=== PATIENT | female | born 1935 | race Caucasian/White ===

== ENCOUNTER 2019-12-01 12:56 | Outpatient (CLI) | payer OTHER, SELFPAY ==
[2019-12-01 14:01] LABS: Hematocrit 41.4 % (37.0-47.0); Hemoglobin 13.1 g/dL (12.0-15.0); Mean Corpuscular HGB Conc 31.6 g/dl (32-36); Mean Corpuscular Hemoglobin 29.5 pg (26-34); Mean Corpuscular Volume 93.2 fl (80-100); Mean Platelet Volume 10.2 fl (7.4-10.4); Platelet Count Result 196 k/mm3 (150-375); Red Blood Count 4.44 M/mm3 (4.2-5.4); Red Cell Distribution Width 12.6 % (11.5-14.5); White Blood Count 5.1 K/mm3 (4.5-10.0)
[2019-12-01 14:16] LABS: Alanine Aminotransferase 13 U/L (4-35); Alkaline Phosphatase 64 U/L (38-126); Anion Gap 7 mmol/L (8-16); Aspartate Amino Transferase 25 U/L (14-36); Bilirubin,Total 0.5 mg/dL (0.2-1.3); Blood Urea Nitrogen 28 mg/dL (7-17); Calcium 9.3 mg/dL (8.4-10.2); Carbon Dioxide 26 mmol/L (22-30); Chloride 104 mmol/L (98-107); Cholesterol 155 mg/dL (0-200); Estimated Glomerular Filt Rate > 60; Glucose 98 mg/dL (65-105); HDL Direct 66 mg/dL; Potassium 3.9 mmol/L (3.4-5.0); Sodium 137 mmol/L (137-145); Triglycerides 105 mg/dL (<150); Uric Acid 5.7 mg/dL (2.5-7.5)
[2019-12-01 14:27] LABS: LDL Cholesterol Direct 59 mg/dL
== END 2019-12-01 12:57 | disposition home or self-care (01) ==
LOC: ANHLAB 12:58
PROVIDERS: PCP Family Medicine; Visit Provider Family Medicine
DX: E78.2 Mixed hyperlipidemia (principal); I10 Essential (primary) hypertension; M12.9 Arthropathy, unspecified
CPT/HCPCS: 36415; 80053; 80061; 84550; 85027

== ENCOUNTER 2019-12-11 14:00 | Outpatient (CLI) | payer OTHER, SELFPAY ==
--- NOTE | ~2019-12-11 | US_ITS ---
EXAMINATION: US venous doppler [facility] DATE: 12/11/2019 14:29 INDICATION: Left lower limb edema. TECHNIQUE: Grayscale ultrasound images without and with compression and Doppler ultrasound images of the left lower extremity veins were obtained. COMPARISON: None. FINDINGS: The visualized portions of left common femoral vein, profunda (deep) femoral vein, femoral vein, popl iteal vein, peroneal veins, posterior tibial veins, and greater saphenous vein outflow are patent. IMPRESSION: 1. No deep venous thrombosis. Reviewed, dictated and finalized at location B.
== END 2019-12-11 14:01 | disposition home or self-care (01) ==
LOC: ANHIMG 14:06
PROVIDERS: PCP Family Medicine; Visit Provider Family Medicine
DX: R60.9 Edema, unspecified (principal)
CPT/HCPCS: 93971

== ENCOUNTER 2019-12-18 09:43 | Outpatient (CLI) | payer OTHER, SELFPAY ==
--- NOTE | ~2019-12-18 | DEXA_ITS ---
Bone Density Report Name: Hilda Tinoco Age: 84 Sex: Female Ethnicity: White Date of : 1935 Indication: osteopenia; height loss; prior fracture; hysterectomy; Referring Provider: CORINNA YUNG Study: Bone densitometry was performed. Exam Date: December 18, 2019 Accession number: [id number] Bone Density: Region BMD T-score Z-score Classification AP Spine (L1, L2, L3) 0.863 -1.4 1.3 Osteopenia Femoral Neck (Left) 0.510 -3.0 -0.6 Osteoporosis Total Hip (Left) 0.685 -2.1 0.1 Osteopenia Total Hip Bilateral Avg 0.702 -1.9 0.3 Osteopenia Femoral Neck (Right) 0.540 -2.8 -0.3 Osteoporosis Total Hip (Right) 0.717 -1.8 0.4 Osteopenia World Health Organization criteria for BMD impression classify patients as: Normal (T-score at or above -1.0), Osteopenia (T-score between -1.0 and -2.5), or Osteoporosis (T-score at or below -2.5). 10-year Fracture Risk: FRAX not reported because: Some T-score for Spine Total or Hip Total or Femoral Neck at or below -2.5 Previous Exams: Region Exam Age BMD T-score BMD Change BMD Change Date g/cm2 vs Baseline vs Previous AP Spine(L1, L2, L3) 12/18/2019 84 0.863 -1.4 0.110(14.6%)# 0.058(7.2%)* 05/25/2016 80 0.805 -1.9 0.052(6.9%)# 0.021(2.7%)# 01/31/2013 77 0.784 -2.1 0.031(4.2%)# 0.018(2.3%)# 04/26/2003 67 0.766 -2.3 0.013(1.8%) 0.013(1.8%) 07/18/2001 65 0.753 -2.4 Total Hip(Left) 12/18/2019 84 0.685 -2.1 -0.066(-8.7%)# -0.064(-8.5%)* 05/25/2016 80 0.749 -1.6 -0.002(-0.2%)# 0.041(5.8%)# 01/31/2013 77 0.708 -1.9 -0.043(-5.7%)# -0.043(-5.7%)# 04/26/2003 67 0.751 -1.6 Total Hip(Right) 12/18/2019 84 0.717 -1.8 -0.072(-9.2%)# 0.006(0.8%) 05/25/2016 80 0.711 -1.9 -0.078(-9.9%)# -0.065(-8.4%)# 01/31/2013 77 0.777 -1.4 -0.013(-1.6%)# -0.013(-1.6%)# 04/26/2003 67 0.789 -1.3 *Denotes significance at 95% confidence level, LSC for AP Spine = 0.022 g/cm2, LSC for Total Hip = 0.027 g/cm2 Clinical Information Provided by Patient: Has had a low trauma fracture Has the following medical conditions: Hysterectomy Patient maximum height was 65 Menopause Age: 51 No regular weight bearing exercise Onset of menses at age 14 Number of children 5 Impression: The patient has established osteoporosis, based on the Left Femoral Neck T-score and the existence of a prior fracture. The patient has risk factors, including: previous fracture. T
--- NOTE | ~2019-12-18 | MM_ITS ---
EXAMINATION: MM screening [facility] BI w jae HISTORY: Screening TECHNIQUE: Craniocaudal and mediolateral oblique 3-D tomosynthesis images were obtained and synthetic 2-D images were generated. CAD analysis was submitted and interpreted. COMPARISON: 01/31/2013 BREAST PARENCHYMAL COMPOSITION: There are scattered areas of fibroglandular density. FINDINGS: There is no evidence of suspicious mass, calcification, or architectural distortion to sugg est malignancy in either breast. There has been no suspicious interval change. IMPRESSION: 1. No mammographic evidence of malignancy. 2. Recommend routine screening mammography in one year. BI-RADS Category 1: Negative Reviewed, dictated and finalized at location A.
== END 2019-12-18 09:44 | disposition home or self-care (01) ==
LOC: ANHIMG 09:45
PROVIDERS: PCP Family Medicine; Visit Provider Family Medicine
DX: Z12.31 Encounter for screening mammogram for malignant neoplasm of breast (principal); Z78.0 Asymptomatic menopausal state; M85.88 Other specified disorders of bone density and structure, other site; M81.0 Age-related osteoporosis without current pathological fracture; M85.852 Other specified disorders of bone density and structure, left thigh; M85.851 Other specified disorders of bone density and structure, right thigh
CPT/HCPCS: 77063; 77067; 77080

== ENCOUNTER → 2020-05-27 12:31 | Outpatient (CLI) | payer OTHER, SELFPAY ==
--- NOTE | ~2020-05-27 | CT_ITS ---
EXAMINATION: CT brain & sinus wo con DATE: 05/27/2020 13:16 INDICATION: Dizziness TECHNIQUE: Computed tomography (CT) of the brain and sinuses was performed without intravenous contra st. The dose-length product was 674.51 mGy-cm. Automated exposure control and iterative reconstructio n technique were employed. COMPARISON: None FINDINGS: Brain parenchymal volume is normal. No acute intracranial hemorrhage, infarction, mass or m ass effect. There are scattered mild periventricular and subcortical white matter changes, most likel y related to small vessel ischemic disease (microangiopathy). No ventriculomegaly or midline shift. B asilar cisterns are patent. Mild mucosal thickening of the maxillary and ethmoid sinuses. Mastoids ar e pneumatized. Rightward nasal septal deviation. IMPRESSION: 1. No acute intracranial abnormality. 2: Mild sinus disease. 3: Chronic age-related findings. Reviewed, dictated and finalized at location B. SERVICE CONSULTANT
== END ==
PROVIDERS: Visit Provider Family Medicine
DX: R42 Dizziness and giddiness (principal)
CPT/HCPCS: 70450; 70486

== ENCOUNTER 2020-05-31 12:32 | Outpatient (CLI) | payer OTHER, SELFPAY ==
--- NOTE | ~2020-05-31 | US_ITS ---
EXAMINATION: US carotid duplex BI DATE: 05/31/2020 13:20 INDICATION: Dizziness TECHNIQUE: Grayscale, color Doppler, and pulsed Doppler images of the cervical carotid arteries were obtained. The degree of vessel stenosis is placed in one of the following categories: normal, <50%, 5 0-69%, >=70% but less than near-occlusion, near-occlusion, or total occlusion. Note that percent sten osis relative to normal distal artery lumen diameter is indirectly measured from velocity measurement s as described by Mesfin, et al. Radiology 2003; 229:340-346. Notes: Normal: Peak systolic velocity <125 centimeters/sec and no plaque <50%. Peak systolic velocity <125 ( EDV <40; ICA/CCA PSV ratio <2.0; used these factors only a tandem lesions or low cardiac output or co ntralateral disease) 50-69 %: PSV 125-230 (EDV 40-100; ratio 2-4) >= 70% but less than near occlusion: PSV greater than 230 (EDV > 100; ratio> 4.0) Near Occlusion: PSV that is variable; markedly narrowed lumen Occlusion: Absent flow on color/spectral Doppler and no lumen on arcos scale. COMPARISON: None. FINDINGS: RIGHT: The right common carotid artery (CCA) peak systolic velocity (PSV) is 69 cm/s. The right internal car otid artery (ICA) PSV is 64 cm/s. The right ICA end-diastolic velocity (EDV) is 17 cm/s. The right IC A/CCA PSV ratio is less than 1. The external carotid artery (ECA) PSV is 82 cm/s. There is antegrade flow in the right vertebral artery. LEFT: The left CCA PSV is 76 cm/s. The left ICA PSV is 66 cm/s. The left ICA EDV is 19 cm/s. The left ICA/C CA PSV ratio is less than 1. The ECA PSV is 55 cm/s. There is antegrade flow in the left vertebral a rtery. IMPRESSION: 1. Less than 50% stenosis in the right internal carotid artery by sonographic criteria. 2. Less than 50% stenosis in the left internal carotid artery by sonographic criteria. Reviewed, dictated and finalized at location B. Y ANALYST IMPRESSION: 1. Less than 50% stenosis in the right internal carotid artery by sonographic barbara jain. 2. Less than 50% stenosis in the left internal carotid artery by sonographic simeon quispe.
== END 2020-05-31 12:33 | disposition home or self-care (01) ==
PROVIDERS: PCP Family Medicine; Visit Provider Family Medicine
DX: R42 Dizziness and giddiness (principal); I65.23 Occlusion and stenosis of bilateral carotid arteries
CPT/HCPCS: 93880

== ENCOUNTER 2021-05-28 11:31 | Outpatient (CLI) | payer OTHER, SELFPAY ==
[2021-05-28 12:28] LABS: Basophils Percent Auto 0.6 % (0.2-1.2); Eosinophils Absolute Auto 0.2 K/mm3 (0-0.3); Eosinophils Percent Auto 2.4 % (0-4.4); Hematocrit 44.3 % (37.0-47.0); Hemoglobin 13.9 g/dL (12.0-15.0); Immature Granulocyte Absolute 0.02 K/mm3 (0.00-0.031); Immature Granulocyte Percent A 0.3 % (0-0.5); Lymphocytes Absolute Auto 1.49 K/mm3 (0.9-3.2); Lymphocytes Percent Auto 23.7 % (18.3-44.2); Mean Corpuscular HGB Conc 31.4 g/dl (32-36); Mean Corpuscular Hemoglobin 29.4 pg (26-34); Mean Corpuscular Volume 93.9 fl (80-100); Mean Platelet Volume 9.6 fl (7.4-10.4); Monocytes Absolute Auto 0.6 K/mm3 (0.1-0.6); Monocytes Percent Auto 9.2 % (2.6-8.5); Neutrophils Percent Auto 63.8 % (45.5-73.1); Platelet Count Result 206 k/mm3 (150-375); Red Blood Count 4.72 M/mm3 (4.2-5.4); Red Cell Distribution Width 12.6 % (11.5-14.5); White Blood Count 6.3 K/mm3 (4.5-10.0)
[2021-05-28 12:40] LABS: Add Urine Microscopic? YES; Appearance Urine Cloudy (Clear); Bilirubin Urine Negative (Negative); Blood Urine Negative (Negative); Color Urine Yellow (Yellow); Glucose Urine UA Negative (Negative); Ketones Urine Negative (Negative); Leukocyte Esterase Ur 3+ LEU/UL (Negative); Nitrate Urine Positive (Negative); Protein Urine 1+ mg/dL (Negative); Specific Grav Ur 1.018 (1.001-1.035); Squamous Epithelial Cell Urine Occasional /hpf (Few); Transitional Epi Cells Urine Rare /hpf (None Seen); Urobilinogen Urine Negative mg/dL (<2.0); WBC Urine >75 /hpf
[2021-05-28 12:45] LABS: Alanine Aminotransferase 14 U/L (4-35); Albumin Level 4.1 g/dL (3.5-5.1); Alkaline Phosphatase 82 U/L (38-126); Anion Gap 5 mmol/L (8-16); Aspartate Amino Transferase 29 U/L (14-36); Bilirubin,Total 0.7 mg/dL (0.2-1.3); Blood Urea Nitrogen 21 mg/dL (7-17); Calcium 9.4 mg/dL (8.4-10.2); Carbon Dioxide 29 mmol/L (22-30); Chloride 106 mmol/L (98-107); Cholesterol 163 mg/dL (0-200); Estimated Glomerular Filt Rate 60; Glucose 100 mg/dL (65-110); HDL Direct 56 mg/dL; Potassium 4.7 mmol/L (3.4-5.0); Sodium 140 mmol/L (137-145); Triglycerides 163 mg/dL (<150)
[2021-05-28 12:46] LABS: Hemoglobin A1C 5.7 % (<5.7)
[2021-05-28 12:56] LABS: LDL Cholesterol Direct 55 mg/dL
[2021-06-02 11:31] LABS: Vitamin D 1,25 (OH)2 Total 33 pg/mL (18-72); Vitamin D2 1,25 (OH)2 <8 pg/mL; Vitamin D3 1,25 (OH)2 33 pg/mL
== END 2021-05-28 11:32 | disposition home or self-care (01) ==
PROVIDERS: PCP Family Medicine; Visit Provider Nurse Practitioner Gerontology
DX: E55.9 Vitamin D deficiency, unspecified (principal); F32.9 Major depressive disorder, single episode, unspecified; E03.9 Hypothyroidism, unspecified; R73.01 Impaired fasting glucose; I10 Essential (primary) hypertension; R30.0 Dysuria
CPT/HCPCS: 36415; 80053; 80061; 81001; 82652; 83036; 84443; 85025; 87077; 87086; 87186

== ENCOUNTER 2021-07-17 08:11 | Outpatient (CLI) | payer OTHER, SELFPAY ==
--- NOTE | ~2021-07-17 | MM_ITS ---
EXAMINATION: MM screening [facility] BI w jae HISTORY: Screening mammogram TECHNIQUE: Craniocaudal and mediolateral oblique 3-D tomosynthesis images were obtained and synthetic 2-D images were generated. CAD analysis was submitted and interpreted. COMPARISON: 12/18/2019, 01/31/2013, 02/21/2009 BREAST PARENCHYMAL COMPOSITION: There are scattered areas of fibroglandular density. FINDINGS: There is no suspicious mass, calcification, or architectural distortion to suggest malignan cy in either breast. There has been no suspicious interval change. IMPRESSION: 1. No mammographic evidence of malignancy. 2. Recommend routine screening mammography in one year. BI-RADS Category 1: Negative Reviewed, dictated and finalized at location A.
== END 2021-07-17 08:12 | disposition home or self-care (01) ==
PROVIDERS: PCP Family Medicine; Visit Provider Family Medicine
DX: Z12.31 Encounter for screening mammogram for malignant neoplasm of breast (principal)
CPT/HCPCS: 77063; 77067

== ENCOUNTER 2021-11-04 13:11 | Outpatient (CLI) | payer OTHER, SELFPAY ==
[2021-11-04 13:52] LABS: Appearance Urine Cloudy (Clear); Bilirubin Urine Negative (Negative); Blood Urine Trace-lysed (Negative); Color Urine Yellow (Yellow); Glucose Urine UA Negative (Negative); Ketones Urine Negative (Negative); Leukocyte Esterase Ur 2+ LEU/UL (Negative); Nitrate Urine Positive (Negative); Protein Urine 1+ mg/dL (Negative); Specific Grav Ur >= 1.030 (1.001-1.035); Urobilinogen Urine 0.2 mg/dL (<2.0); pH Urine 5.5 (5.0-9.0)
[2021-11-04 14:11] LABS: Bacteria Urine Trace /hpf; WBC Urine >75 /hpf
[2021-11-04 14:15] LABS: Mucus Urine Moderate /lpf; Squamous Epithelial Cell Urine Moderate /hpf (Few); Transitional Epi Cells Urine Rare /hpf (None Seen); WBC Clumps Urine Present /HPF
[2021-11-04 14:24] LABS: Add Urine Microscopic? YES
== END 2021-11-04 13:12 | disposition home or self-care (01) ==
LOC: ANHLAB 13:12
PROVIDERS: PCP Family Medicine; Visit Provider Physician Assistant
DX: R30.0 Dysuria (principal)
CPT/HCPCS: 81001; 87077; 87086; 87186

== ENCOUNTER 2022-02-02 15:11 | Outpatient (CLI) | payer OTHER, SELFPAY ==
[2022-02-02 15:52] LABS: Add Urine Microscopic? YES; Appearance Urine Cloudy (Clear); Bilirubin Urine Negative (Negative); Blood Urine 1+ (Negative); Color Urine Yellow (Yellow); Glucose Urine UA Negative (Negative); Ketones Urine Negative (Negative); Leukocyte Esterase Ur 3+ LEU/UL (Negative); Mucus Urine Rare /lpf; Nitrate Urine Positive (Negative); Protein Urine 1+ mg/dL (Negative); RBC Urine >75 /hpf (0-2); Specific Grav Ur 1.023 (1.001-1.035); Squamous Epithelial Cell Urine Few /hpf (Few); Urobilinogen Urine Negative mg/dL (<2.0); WBC Urine >75 /hpf
== END 2022-02-02 15:12 | disposition home or self-care (01) ==
PROVIDERS: PCP Family Medicine; Visit Provider Physician Assistant
DX: R30.0 Dysuria (principal)
CPT/HCPCS: 81001; 87077; 87086; 87186

== ENCOUNTER 2022-12-16 11:21 | Outpatient (CLI) | payer OTHER, SELFPAY ==
[2022-12-16 12:22] LABS: Basophils Percent Auto 0.7 % (0.2-1.2); Eosinophils Absolute Auto 0.2 K/mm3 (0-0.3); Eosinophils Percent Auto 2.8 % (0-4.4); Hematocrit 42.6 % (37.0-47.0); Hemoglobin 13.3 g/dL (12.0-15.0); Immature Granulocyte Absolute 0.02 K/mm3 (0.00-0.031); Immature Granulocyte Percent A 0.3 % (0-0.5); Lymphocytes Absolute Auto 1.31 K/mm3 (0.9-3.2); Lymphocytes Percent Auto 22.6 % (18.3-44.2); Mean Corpuscular HGB Conc 31.2 g/dl (32-36); Mean Corpuscular Hemoglobin 29.2 pg (26-34); Mean Corpuscular Volume 93.6 fl (80-100); Mean Platelet Volume 9.9 fl (7.4-10.4); Monocytes Absolute Auto 0.6 K/mm3 (0.1-0.6); Monocytes Percent Auto 10.9 % (2.6-8.5); Neutrophils Absolute Auto 3.6 K/mm3 (1.3-6.7); Neutrophils Percent Auto 62.7 % (45.5-73.1); Platelet Count Result 202 k/mm3 (150-375); Red Blood Count 4.55 M/mm3 (4.2-5.4); Red Cell Distribution Width 13.2 % (11.5-14.5); White Blood Count 5.8 K/mm3 (4.5-10.0)
[2022-12-16 12:36] LABS: Alanine Aminotransferase 18 U/L (6-35); Albumin Level 4.1 g/dL (3.5-5.1); Alkaline Phosphatase 62 U/L (38-126); Anion Gap 9 mmol/L (8-16); Aspartate Amino Transferase 30 U/L (14-36); Bilirubin,Total 0.8 mg/dL (0.2-1.3); Blood Urea Nitrogen 30 mg/dL (7-17); Calcium 9.5 mg/dL (8.4-10.2); Carbon Dioxide 29 mmol/L (22-30); Chloride 101 mmol/L (98-107); Cholesterol 140 mg/dL (0-200); Estimated Glomerular Filt Rate 53; Glucose 106 mg/dL (65-110); HDL Direct 54 mg/dL; Potassium 4.4 mmol/L (3.4-5.0); Sodium 139 mmol/L (137-145); Triglycerides 107 mg/dL (<150)
[2022-12-16 12:48] LABS: LDL Cholesterol Direct 57 mg/dL
== END 2022-12-16 11:22 | disposition home or self-care (01) ==
PROVIDERS: PCP Family Medicine; Visit Provider Physician Assistant
DX: E78.2 Mixed hyperlipidemia (principal); I10 Essential (primary) hypertension; I25.10 Atherosclerotic heart disease of native coronary artery without angina pectoris; E03.9 Hypothyroidism, unspecified
CPT/HCPCS: 36415; 80053; 80061; 84443; 85025

== ENCOUNTER 2023-02-17 08:27 | Outpatient (CLI) | payer OTHER, SELFPAY ==
--- NOTE | ~2023-02-17 | NM_ITS ---
EXAMINATION: NM enrique stress w perfusion DATE: 02/17/2023 13:06 INDICATION: Dyspnea on exertion TECHNIQUE: Rest images were obtained following intravenous administration of 12.1 mCi Tc99m tetrofosm in (Myoview). The patient was infused intravenously with Lexiscan (Regadenoson). Then, 31.6 mCi Tc99m tetrofosmin (Myoview) was administered intravenously, and stress images were obtained. Data was zulay nstructed into short axis and horizontal and vertical long axis SPECT images. Gated SPECT images were also obtained. COMPARISON: None. FINDINGS: There is no definite reversible or fixed perfusion abnormality to suggest ischemia or infar ction. There is normal left ventricular chamber size, wall motion and ejection fraction. Left ventr icular ejection fraction measures >70%. IMPRESSION: 1. Normal myocardial perfusion at rest and during stress. 2. Left ventricular ejection fraction measuring >70%. Reviewed, dictated and finalized at location A.
--- NOTE | 2023-02-17 08:52 | ECHO_ITS ---
Patient Info Name: Hilda Tinoco Age: 87 years : 1935 Gender: Female Ht: 64 in Wt: 165 lbs BSA: 1.86 m2 HR: 56 bpm BP: 128 / 71 mmHg Technical Quality: Fair Exam Date: 02/17/2023 9:07 AM Exam Location: Echo Lab Patient Status: Outpatient Admit Date: 02/17/2023 Staff Ordering Physician: Tono Schafer DO Cycle Repairer: Gabrielle Graff RDCS Attending Provider: Tono Schafer DO Referring Physician: Gilmar CARABALLO; Exam Type: CA echo doppler color flow Study Info Indications R06.00 - Dyspnea, unspecified Complete two-dimensional, color flow and Doppler transthoracic echocardiogram is performed. Summary 1. Complete two-dimensional, color flow and Doppler transthoracic echocardiogram is performed. 2. Left ventricular chamber dimension is normal. 3. Left ventricular systolic function is normal, estimated at 60-65%. 4. The left ventricular diastolic function is grade I diastolic dysfunction. 5. E/e' 8 is minimally elevated. 6. Left atrial chamber dimension is moderately enlarged. 7. There is mild aortic valve sclerosis. 8. There is trace mitral valve regurgitation. 9. There is trace tricuspid valve regurgitation. 10. No pulmonary hypertension, estimated pulmonary arterial systolic pressure is 35 mmHg. Left Ventricle E/e' 8 is minimally elevated. Left ventricular chamber dimension is normal. Left ventricular systolic function is normal, estimated at 60-65%. The left ventricular diastolic function is grade I diastolic dysfunction. Right Ventricle Right ventricular systolic function is normal and with normal TAPSE 2.2 cm. Right ventricular chamber dimension is normal. Left Atria Left atrial chamber dimension is moderately enlarged. Right Atria Right atrial chamber dimension is normal. Aortic Valve The aortic valve is trileaflet. There is mild aortic valve sclerosis. There is no aortic valve stenosis. There is no aortic valve regurgitation. Pulmonic Valve There is no pulmonic regurgitation. Mitral Valve There is no mitral valve stenosis. There is trace mitral valve regurgitation. Tricuspid Valve There is trace tricuspid valve regurgitation. No pulmonary hypertension, estimated pulmonary arterial systolic pressure is 35 mmHg. Pericardium/Pleural There is no pericardial effusion. Inferior Vena Cava Normal inferior vena cava with >50% collapse upon inspiration consistent with normal right atrial pressure, 5 mmHg. Aorta The aortic root size at the sinus of Valsalva is normal. Left Ventricular Outflow Tract Name Value Normal LVOT 2D LVOT Diameter 2.0 cm LVOT Doppler LVOT Peak Velocity 101 cm/s LVOT Peak Gradient 4 mmHg LVOT Mean Gradient 2 mmHg LVOT VTI 20 cm LVOT VTI/AV VTI Ratio 0.8 LVOT Stroke Volume 63 ml LVOT CO 13.4 l/min LVOT CI 7.2 l/min/m2 Pulmonic Valve Name Value Normal
--- NOTE | 2023-02-17 08:53 | EST_ITS ---
Patient Info Name: Hilda Tinoco Age: 87 years : 1935 Gender: Female Ht: 64 in Wt: 170 lbs BSA: 1.89 m2 HR: 76 bpm BP: 130 / 74 mmHg Heart Rhythm: Sinus Rhythm Exam Date: 02/17/2023 11:19 AM Exam Location: Echo Lab Patient Status: Outpatient Admit Date: 02/17/2023 Staff Ordering Physician: Tono Schafer DO Attending Provider: Tono Schafer DO Exercise Technologist: Sakshi Richards RDCS Exercise Physician: Tono Schafer DO Exam Type: CA stress enrique w NM Study Info A regadenoson stress test was performed. Summary 1. 1. Negative lexiscan stress test for ischemic ST changes by ECG criteria. 2. 2. Stable hemodynamics throughout the test. 3. 3. Nuclear scan to follow and will be reported separately. Please correlate with it. 4. 4. Patient informed of the above results. Protocol: Lexiscan Stress ECG Details Stage: REST Duration (min): 1 min : 10 sec HR (bpm): 75 SBP (mmHg): 130 DBP (mmHg): 74 Stage: REST Duration (min): 7 min : 20 sec HR (bpm): 75 SBP (mmHg): 130 DBP (mmHg): 74 Stage: STAGE 1 Duration (min): 1 min : 0 sec HR (bpm): 86 SBP (mmHg): 124 DBP (mmHg): 68 Stage: RECOVERY Duration (min): 1 min : 0 sec HR (bpm): 93 SBP (mmHg): 124 DBP (mmHg): 68 Stage: RECOVERY Duration (min): 2 min : 0 sec HR (bpm): 95 SBP (mmHg): 124 DBP (mmHg): 68 Stage: RECOVERY Duration (min): 3 min : 0 sec HR (bpm): 88 SBP (mmHg): 120 DBP (mmHg): 66 Stage: RECOVERY Duration (min): 3 min : 6 sec HR (bpm): 88 SBP (mmHg): 120 DBP (mmHg): 66 Rest HR: 75 bpm Peak HR: 104 bpm Rest Sys BP: 130 mmHg Peak Sys BP: 124 mmHg Max Pred HR: 134 bpm % Max Pred HR: 78 % Target HR: 114 bpm Max RPP: 12,896 bpm*mmHg Termination Reason: Completed protocol Cardiac Symptoms: Shortness of breath Total Time: 1 min : 0 sec Rest Epstein BP: 74 mmHg Peak Epstein BP: 68 mmHg Total Dose: 0.4 mg Resting ECG Sinus rhythm, PRWP- consider anterior infarct. Stress ECG No ST changes. Arrhythmias None. Report Signatures
== END 2023-02-17 08:28 | disposition home or self-care (01) ==
PROVIDERS: PCP Family Medicine; Visit Provider Internal Medicine Cardiovascular Disease
DX: I35.8 Other nonrheumatic aortic valve disorders (principal); I34.0 Nonrheumatic mitral (valve) insufficiency; I07.1 Rheumatic tricuspid insufficiency; R93.1 Abnormal findings on diagnostic imaging of heart and coronary circulation; R06.09 Other forms of dyspnea
CPT/HCPCS: 78452; 93017; 93306; A9502; J2785

== ENCOUNTER 2023-04-20 14:43 | Outpatient (CLI) | payer OTHER, SELFPAY ==
[2023-04-20 15:38] LABS: Influenza A QL RT-PCR Negative (Negative); Influenza B QL RT-PCR Negative (Negative); RSV RNA, RT-PCR Negative (Negative); SARS-CoV-2 RNA PCR Negative (Negative)
== END 2023-04-20 14:44 | disposition home or self-care (01) ==
LOC: ANHLAB 14:45
PROVIDERS: PCP Family Medicine; Visit Provider Physician Assistant
DX: J02.9 Acute pharyngitis, unspecified (principal); R05.9 Cough, unspecified; Z20.822 Contact with and (suspected) exposure to COVID-19
CPT/HCPCS: 87637

== ENCOUNTER 2023-04-21 12:02 | Outpatient (CLI) | payer OTHER, SELFPAY ==
--- NOTE | ~2023-04-21 | XR_ITS ---
XR chest 2V DATE: 04/21/2023 11:45 INDICATION: Dyspnea TECHNIQUE: PA and lateral views COMPARISON: 01/18/2019 2 view chest FINDINGS: Normal heart size. Large hiatal hernia. Thoracic aortic calcification. There is atelectasis and/or consolidation in the right lower lung and lesser discoid atelectasis or s carring at the left lung base. There is elevation of the right leaf of the diaphragm. Diffuse osteopenia. Thoracic and lumbar scoliosis and degenerative change. IMPRESSION: Bibasilar infiltrate and/atelectasis, greater on the right Right diaphragm elevation Large hiatal hernia Thoracic aortic calcification Osteopenia Reviewed, dictated and finalized at location B. ING HOME DIRECTOR
[2023-04-21 12:33] LABS: Appearance Urine Cloudy (Clear); Bacteria Urine 4+ /hpf; Bilirubin Urine Negative (Negative); Blood Urine Negative (Negative); Color Urine Yellow (Yellow); Glucose Urine UA Negative (Negative); Ketones Urine Negative (Negative); Leukocyte Esterase Ur 3+ LEU/UL (Negative); Nitrate Urine Positive (Negative); Non Pathogenic Casts 0-2; Protein Urine Negative (Negative); RBC Urine 0-2 /hpf (0-2); Specific Grav Ur 1.011 (1.001-1.035); Squamous Epithelial Cell Urine None seen /hpf (Few); Urobilinogen Urine 0.2 mg/dL (<2.0); WBC Urine >100 /hpf; pH Urine 5.5 (5.0-9.0)
[2023-04-21 12:39] LABS: Add Urine Microscopic? YES
== END 2023-04-21 12:03 | disposition home or self-care (01) ==
PROVIDERS: PCP Family Medicine; Visit Provider Physician Assistant
DX: R06.09 Other forms of dyspnea (principal); R30.0 Dysuria; M85.88 Other specified disorders of bone density and structure, other site; K44.9 Diaphragmatic hernia without obstruction or gangrene; R91.8 Other nonspecific abnormal finding of lung field; I70.0 Atherosclerosis of aorta
CPT/HCPCS: 71046; 81001; 87077; 87086; 87186

== ENCOUNTER 2023-05-05 14:46 | Outpatient (CLI) | payer OTHER, SELFPAY ==
--- NOTE | ~2023-05-05 | XR_ITS ---
XR lumbar spine 2-3V DATE: 05/05/2023 15:24 INDICATION: Right hip pain TECHNIQUE: AP, lateral and coned lateral lumbosacral views COMPARISON: 01/23/2013 lumbar spine FINDINGS: There is diffuse osteopenia. There is mild levoscoliosis. There is grade 1 anterolisthesis at L3-4 and grade 2 anterolisthesis at L4-5, due to very prominent d egenerative change at the apophyseal joints. There is moderate degenerative disc disease at T11-12 with mild retrolisthesis. There is mild degenerative disc disease at L1-2, L2-3 and L3-4. There is moderately severe degenerative disc disease at L4-5 and L5-S1. No fracture or bone destruction is detected. The sacroiliac joints are intact. There is abdominal aortic and iliac arterial calcification. IMPRESSION: Osteopenia Moderately severe lumbar spondylosis Reviewed, dictated and finalized at location B. LE SETTER
--- NOTE | ~2023-05-05 | XR_ITS ---
EXAMINATION: XR hip BI wo pelvis DATE: 05/05/2023 15:24 INDICATION: Right hip pain. TECHNIQUE: 2 views of right hip and 2 views of left hip were obtained. COMPARISON: Left hip radiographs 10/23/20 FINDINGS: Bone alignment is normal. No fracture. There is mild osteoarthritis of the hips. IMPRESSION: 1. Mild osteoarthritis of the hips. Reviewed, dictated and finalized at location E. P ROOMS COORDINATOR
== END 2023-05-05 14:47 | disposition home or self-care (01) ==
PROVIDERS: PCP Family Medicine; Visit Provider Physician Assistant
DX: M16.0 Bilateral primary osteoarthritis of hip (principal); M85.88 Other specified disorders of bone density and structure, other site; M47.896 Other spondylosis, lumbar region
CPT/HCPCS: 72100; 73521

== ENCOUNTER 2023-07-15 13:03 | Outpatient (CLI) | payer OTHER, SELFPAY ==
[2023-07-15 14:49] LABS: Appearance Urine Turbid (Clear); Bacteria Urine 4+ /hpf; Bilirubin Urine Negative (Negative); Blood Urine 3+ (Negative); Color Urine Yellow (Yellow); Glucose Urine UA Negative (Negative); Ketones Urine Negative (Negative); Leukocyte Esterase Ur 3+ LEU/UL (Negative); Nitrate Urine Positive (Negative); Non Pathogenic Casts 0-2; Protein Urine 1+ mg/dL (Negative); RBC Urine >100 /hpf (0-2); Specific Grav Ur 1.024 (1.001-1.035); Squamous Epithelial Cell Urine Few /hpf (Few); Urobilinogen Urine 0.2 mg/dL (<2.0); WBC Urine >100 /hpf (0-3); pH Urine 5.5 (5.0-9.0)
[2023-07-15 14:59] LABS: Add Urine Microscopic? YES
== END 2023-07-15 13:04 | disposition home or self-care (01) ==
LOC: ANHLAB 13:05
PROVIDERS: PCP Family Medicine; Visit Provider Physician Assistant
DX: R30.0 Dysuria (principal)
CPT/HCPCS: 81001; 87077; 87086; 87088; 87186

== ENCOUNTER 2023-11-24 12:26 | Outpatient (CLI) | payer OTHER, SELFPAY ==
[2023-11-24 13:03] LABS: Hematocrit 40.8 % (37.0-47.0); Hemoglobin 12.7 g/dL (12.0-15.0); Mean Corpuscular HGB Conc 31.1 g/dl (32-36); Mean Corpuscular Hemoglobin 29.7 pg (26-34); Mean Corpuscular Volume 95.6 fl (80-100); Mean Platelet Volume 9.3 fl (7.4-10.4); Platelet Count Result 220 k/mm3 (150-375); Red Blood Count 4.27 M/mm3 (4.2-5.4); Red Cell Distribution Width 13.2 % (11.5-14.5); White Blood Count 6.1 K/mm3 (4.5-10.0)
[2023-11-24 13:14] LABS: Alanine Aminotransferase 19 U/L (6-35); Alkaline Phosphatase 64 U/L (38-126); Anion Gap 8 mmol/L (4-12); Aspartate Amino Transferase 29 U/L (14-36); Bilirubin,Total 0.7 mg/dL (0.2-1.3); Blood Urea Nitrogen 31 mg/dL (7-17); Calcium 9.3 mg/dL (8.4-10.2); Carbon Dioxide 27 mmol/L (22-30); Chloride 104 mmol/L (98-107); Cholesterol 172 mg/dL (0-200); Estimated Glomerular Filt Rate 47; Glucose 97 mg/dL (65-110); HDL Direct 52 mg/dL; Potassium 4.7 mmol/L (3.4-5.0); Sodium 139 mmol/L (137-145); Triglycerides 120 mg/dL (<150)
[2023-11-24 13:25] LABS: LDL Cholesterol Direct 74 mg/dL
[2023-11-27 15:43] LABS: Vitamin D 1,25 (OH)2 Total 25 pg/mL (18-72); Vitamin D2 1,25 (OH)2 <8 pg/mL; Vitamin D3 1,25 (OH)2 25 pg/mL
== END 2023-11-24 12:27 | disposition home or self-care (01) ==
PROVIDERS: PCP Family Medicine; Visit Provider Physician Assistant
DX: E55.9 Vitamin D deficiency, unspecified (principal); E78.2 Mixed hyperlipidemia; I10 Essential (primary) hypertension
CPT/HCPCS: 36415; 80053; 80061; 82652; 85027

== ENCOUNTER 2023-12-06 10:13 | Outpatient (CLI) | payer OTHER, SELFPAY ==
--- NOTE | ~2023-12-06 | XR_ITS ---
3 VIEWS LUMBAR SPINE Ordering provider: Alec Bang MD History: . M43.16 - Spondylolisthesis, lumbar region. RT SIDE LBP. NKI . Comparison: May 05, 2023 FINDINGS: VERTEBRAL BODIES:Levoscoliosis. Anterolisthesis at the level of L3-L4 and L4-L5. No visible fracture or subluxation. DISK SPACES: Narrowing of all disc spaces. Multilevel facet joint disease. SOFT TISSUES: Normal. IMPRESSION: No acute osseous abnormality lumbar spine. Anterolisthesis at the level of L3-L4 and L4-L5. Multilevel degenerative disc disease. Reviewed, dictated and finalized at location A. IMPRESSION: No acute osseous abnormality lumbar spine. Anterolisthesis at the level of L3-L 4 and L4-L5. Multilevel degenerative disc disease.
== END 2023-12-06 10:14 | disposition home or self-care (01) ==
PROVIDERS: PCP Family Medicine; Visit Provider Anesthesiology Pain Medicine
DX: M43.16 Spondylolisthesis, lumbar region (principal); M47.817 Spondylosis without myelopathy or radiculopathy, lumbosacral region; M54.50 Low back pain, unspecified; G89.29 Other chronic pain; M51.36 Other intervertebral disc degeneration, lumbar region
CPT/HCPCS: 72114

== ENCOUNTER 2023-12-28 10:06 | Day surgery (SDC) | payer OTHER, SELFPAY ==
[2023-12-14 11:38] VITALS: BMI 28.2
--- NOTE | ~2023-12-28 | XR_ITS ---
EXAMINATION: XR fluoroscopy no charge DATE: 12/28/2023 11:10 CDT INDICATION: TAVO L2, L3, L4 , L5 BLK . TECHNIQUE: 15 fluoroscopic images of the lumbar spine were obtained during bilateral L2, L3, L4, and L5 nerve blocks, performed by Alec Bang MD. I was not present during the procedure. Fluoroscop y exposure time was 24.1 seconds. Air Kerma 4.65 mGy. COMPARISON: None FINDINGS/IMPRESSION: Fluoroscopic documentation of bilateral L2, L3, L4, and L5 nerve blocks. Please refer to the operativ e note for complete procedural details . Reviewed, dictated and finalized at location K.
--- NOTE | 2023-12-28 09:06 | WPDHPUPDATE1 ---
History and Physical Update Update Date/Time: 12/28/23 09:06 History and Physical has been reviewed, including an updated exam of the patient. There are NO changes in the patient's condition. Risks, benefits, and alternatives have been discussed and questions answered. Patient agrees to proceed with procedure.
--- NOTE | 2023-12-28 09:07 | W.PM.PROC2 ---
Procedure Note - Detailed Date of Procedure 12/28/23 Pre-op Diagnosis Lumbosacral Spondylosis, Chronic Low Back Pain Post-op Diagnosis Same Procedure Performed Diagnostic Bilateral Lumbar Medial Branch/Dorsal Ramus Blocks at L2, L3, L4, L5 Treating the Bilateral L3-4, L4-5, L5-S1 Facet Joints Under Fluoroscopic Guidance and with Contrast Control. (6 levels blocked). Surgeon Alec Bang MD Front Office Assistant None. Anesthesia Local Description of Procedure INFORMED CONSENT: Risks, benefits and alternatives to the procedure were discussed in detail with the patient who expressed explicit understanding and consent to proceed. Patient was informed verbally and in written form regarding the risks associated with the procedure including the low risk of serious infection, bleeding/bruising, allergic reaction, nerve or organ injury, paralysis, procedural site pain or discomfort, worsening pain and/or mobility, failure to treat and/or disfigurement. The patient expressed explicit understanding and consent to proceed. All materials required for the procedure were available prior to procedure start. Site and side were marked prior to procedure and confirmed in the presence of the patient. PROCEDURE IN DETAIL: The patient was brought to the procedural suite and placed in the prone position. Patient was made comfortable with use of pillows under the head/chest, hips and ankles. Skin overlying the injection site on the affected side(s) was prepared broadly with ChloraPrep applicator and draped in a sterile manner. Aseptic technique was used throughout. The endplates of the vertebral bodies at the site(s) of interest were aligned in the AP view. Ipsilateral oblique angulation was utilized to optimize visualization of the intersection between the superior articulating process and transverse process at each target site. Local anesthesia was established by infiltration with approximately 5 mL of 1% lidocaine via a 1-1/2 inch 27-gauge needle. A 25-gauge 5.0 inch Quincke spinal needle was advanced until the needle tip contacted periosteum at the target site, right L2. Lateral view was utilized to confirm the appropriate placement of the needle tip just anterior to the facet line and superior to the pedicle. In the Lateral view, 0.25 mL of Omnipaque 300 contrast medium was injected after negative aspiration for CSF, blood or other bodily fluid, showing appropriate extra-articular spread of contrast without evidence of intravascular, foraminal or intrathecal placement. A 0.5 mL solution of 0.5% PF bupivacaine was injected after negative repeat aspiration. Appropriate spread of the injectate was confirmed with washout of previously injected contrast. No parasthesias were elicited. Needle was removed completely intact without difficulty. The same exact procedure was repeated for all remaining levels on the ipsilateral side, right L3, L4, L5 medial branches/dorsal ramus, modified as necessary to accommodate for the new target location with identical findings and results and no evidence of complication. The same exact procedure was repeated for all remaining levels on the contralateral side, left L2, L3, L4, L5 medial branches/dorsal ramus, modified as necessary to accommodate for the new target location with identical findings and results and no evidence of complication. Images were saved and documented in the patient chart. Patient's skin was cleaned and sterile bandage applied. The patient tolerated the procedure well. The patient was transported to the recovery area in stable condition where they were observed for an appropriate amount of time prior to discharge, without evidence of complication. Patient was instructed on the appropriate completion of a pain diary over the next 12-24 hours. The patient was instructed to avoid excessive activity for the next 48 hours, including climbing and frequent use of stairs. Showers only for 48 hours. They were instructed not to drive or operate heavy
[2023-12-28 11:06] VITALS: BP 121/87; PULSE 92; RESP 16; TEMP 36.5; O2SAT 95
[2023-12-28 11:15] VITALS: BP 139/82; PULSE 92; RESP 15; O2SAT 94
[2023-12-28 11:25] VITALS: BP 129/82; PULSE 93; RESP 17; O2SAT 94
[2023-12-28] MEDS: LIDOCAINE HCL 1% PF INJ 5 ML VIAL XX (11:27)
[2023-12-28] MEDS: BUPivacaine HCL 0.5% PF 30 ML VIAL 8 ML INFILTRATE (11:36)
[2023-12-28 11:40] VITALS: BP 129/65; PULSE 80; RESP 20; O2SAT 100
== END 2023-12-28 11:54 | disposition home or self-care (01) ==
PROVIDERS: PCP Family Medicine; Visit Provider Anesthesiology Pain Medicine
PROC: (CPT 64493; principal; 2023-12-28 11:30)
DX: M47.817 Spondylosis without myelopathy or radiculopathy, lumbosacral region (principal); M54.59 Other low back pain
CPT/HCPCS: 64493 ×2; 64494 ×2; 64495 ×2; 99199

== ENCOUNTER 2023-12-30 10:45 | Outpatient (CLI) | payer OTHER, SELFPAY ==
[2023-12-30 11:49] LABS: Add Urine Microscopic? YES; Appearance Urine Cloudy (Clear); Bacteria Urine 4+ /hpf; Bilirubin Urine Negative (Negative); Blood Urine Non-Hemolyzed Trace (Negative); Color Urine Yellow (Yellow); Glucose Urine UA Negative (Negative); Ketones Urine Negative (Negative); Leukocyte Esterase Ur 3+ LEU/UL (Negative); Nitrate Urine Positive (Negative); Non Pathogenic Casts 0-2; Protein Urine Trace mg/dL (Negative); RBC Urine 0-2 /hpf (0-2); Squamous Epithelial Cell Urine Occasional /hpf (Few); Urobilinogen Urine 0.2 mg/dL (<2.0); WBC Urine >100 /hpf (0-3); pH Urine 5.5 (5.0-9.0)
[2023-12-30 11:59] LABS: Anion Gap 9 mmol/L (4-12); Blood Urea Nitrogen 24 mg/dL (7-17); Calcium 9.5 mg/dL (8.4-10.2); Carbon Dioxide 28 mmol/L (22-30); Chloride 100 mmol/L (98-107); Estimated Glomerular Filt Rate 59; Glucose 100 mg/dL (65-110); Potassium 4.1 mmol/L (3.4-5.0); Sodium 137 mmol/L (137-145)
== END 2023-12-30 10:46 | disposition home or self-care (01) ==
LOC: ANHLAB 10:50
PROVIDERS: Student in an Organized Health Care Education/Training Program; PCP Family Medicine; Visit Provider Physician Assistant
DX: R79.89 Other specified abnormal findings of blood chemistry (principal); R30.0 Dysuria
CPT/HCPCS: 36415; 80048; 81001; 87077; 87086; 87088; 87186

== ENCOUNTER 2024-01-10 09:57 | Outpatient (CLI) | payer OTHER, SELFPAY ==
--- NOTE | ~2024-01-10 | MR_ITS ---
MRI of the cervical spine Clinical History: Spinal stenosis Technique: Axial T2-weighted and gradient images, and sagittal T1-weighted, T2-weighted, and STIR jo ann ges were acquired. Findings: No acute fracture. There is 8mm anterolisthesis of L4 over L5. No suspicious bone marrow si gnal abnormality seen. There are mild type III Modic changes about the L5-S1 disc space. There are ad ditional type III Modic changes about the T11-T12 disc space. At L1-L2, there is mild disc bulge with mild facet arthropathy. No central canal stenosis. There is m ild left neural foraminal narrowing, and moderate to severe right neural foraminal narrowing. At L2-L3, there is disc bulge and advanced facet arthropathy. No central canal stenosis. There is mod erate to severe right neural foraminal narrowing, and mild to moderate left neural foraminal narrowin g. At L3-L4, there is diffuse disc bulge with severe facet arthropathy. No central canal stenosis. There is moderate bilateral neural foraminal narrowing. At L4-L5, there is disc bulge/uncovering with severe facet arthropathy. No swati central canal stenos is. There is mild left neural foraminal narrowing. Right neural foramen preserved. At L5-S1, there is minimal disc bulge with advanced facet arthropathy. No central canal stenosis. The re is moderate left neural foraminal narrowing, and mild right neural foraminal narrowing. Paravertebral soft tissues are unremarkable. Impression: Moderate degenerative spondylosis overall, as detailed above. 8 mm anterolisthesis of L4 over L5. Reviewed, dictated and finalized at [facility]. Impression: Moderate degenerative spondylosis overall, as detailed above. 8 mm anterolisthesis of L4 over L5.
== END 2024-01-10 09:58 | disposition home or self-care (01) ==
PROVIDERS: PCP Family Medicine; Visit Provider Anesthesiology Pain Medicine
DX: M48.062 Spinal stenosis, lumbar region with neurogenic claudication (principal); M43.16 Spondylolisthesis, lumbar region; M47.896 Other spondylosis, lumbar region
CPT/HCPCS: 72148

== ENCOUNTER 2024-01-25 09:02 | Day surgery (SDC) | payer OTHER, SELFPAY ==
[2024-01-17 14:01] VITALS: BMI 29.2
--- NOTE | ~2024-01-25 | XR_ITS ---
INTRAOPERATIVE FLUOROSCOPY: CLINICAL HISTORY: 88 years old Female; TAVO SI JT INJ PROCEDURE COMMENTS: Limited intraoperative fluoroscopy of the pelvis was performed. CUMULATIVE DOSE: 2.57 mGy FLUOROSCOPY TIME: 13.2 seconds FINDINGS/IMPRESSION: Intraoperative fluoroscopic views demonstrate contrast opacifying the SI joints. Please refer to operative note for further details. Reviewed, dictated and finalized at location A.
--- NOTE | 2024-01-25 05:49 | WPDHPUPDATE1 ---
History and Physical Update Update Date/Time: 01/25/24 05:49 History and Physical has been reviewed, including an updated exam of the patient. There are NO changes in the patient's condition. Risks, benefits, and alternatives have been discussed and questions answered. Patient agrees to proceed with procedure.
--- NOTE | 2024-01-25 05:50 | W.PM.PROC2 ---
Procedure Note - Detailed Date of Procedure 01/25/24 Pre-op Diagnosis Sacroiliitis , chronic low back pain Post-op Diagnosis Same Procedure Performed bilateral Sacroiliac Joint Steroid Injection under Fluoroscopic Guidance and with Contrast Control. Surgeon Alec Bang MD [employer] None Anesthesia Local Description of Procedure INFORMED CONSENT: Risks, benefits and alternatives to the procedure were discussed in detail with the patient who expressed explicit understanding and consent to proceed. Patient was informed verbally and in written form regarding the risks associated with the procedure including the low risk of serious infection, bleeding/bruising, allergic reaction, nerve or organ injury, paralysis, procedural site pain or discomfort, worsening pain and/or mobility, failure to treat and/or disfigurement. The patient expressed explicit understanding and consent to proceed. All materials required for the procedure were available prior to procedure start. Site and side were marked prior to procedure and confirmed in the presence of the patient. PROCEDURE IN DETAIL: The patient was brought to the procedural suite and placed in the prone position. Patient was made comfortable with use of pillows under the head/chest, hips and ankles. Skin overlying the injection site on the affected side(s) was prepared broadly with ChloraPrep applicator and draped in a sterile manner. Aseptic technique was used throughout. The right SI joint was identified in the AP view and contralateral oblique angulation with caudal tilt was utilized to optimize visualization of the inferior and medial joint line representing the posterior portion of the joint. Local anesthesia was established by infiltration with approximately 5 mL of 2% lidocaine via a 1-1/2 inch 27-gauge needle. A 22-gauge 3.5 inch Quincke spinal needle was advanced until the needle entered the inferior third of the joint space approximately 1cm cephalad from its most inferior point. In the AP view, 0.5 mL of Omnipaque 300 contrast medium was injected after negative aspiration for CSF, blood or other bodily fluid, showing appropriate intra-articular spread of contrast without evidence of intravascular, perineural or intrathecal placement. A 1.5 mL solution containing 3 mg of betamethasone in 0.5% PF bupivacaine was injected after repeat negative aspiration. Appropriate spread of the injectate was confirmed with washout of previous injected contrast. No parasthesias were elicited. Needle was removed completely intact without difficulty. The same exact procedure was repeated for all remaining levels on the contralateral side, left SI joint, modified as necessary to accommodate for the new target location with identical findings/results and no evidence of complication. Images were saved and documented in the patient chart. Patient's skin was cleansed and sterile bandage applied. The patient tolerated the procedure well. The patient was transported to the recovery area in stable condition where they were observed for an appropriate amount of time prior to discharge, without evidence of complication. The patient was instructed to avoid excessive activity for the next 48 hours, including climbing and frequent use of stairs. Showers only for 48 hours. They were instructed not to drive or operate heavy machinery for 24 hours. They are to monitor for severe headaches, fevers, chills, night sweats, erythema/swelling at the site or any other signs of infection, bleeding/bruising, bowel or bladder changes as well as new pain, weakness or numbness in the upper or lower extremity. Should they notice these changes, they are instructed to call our office immediately or report directly to the nearest Emergency Department if no answer or if after posted office hours. COMPLICATIONS: None COMMENTS: None CONTRAST WASTED: 29mL Omnipaque 300. Complications No immediate complications Condition Stable Disposition Same day A
[2024-01-25 09:30] VITALS: BP 132/78; PULSE 90; RESP 18; TEMP 36.3; O2SAT 93
[2024-01-25 09:39] VITALS: BP 148/70; PULSE 94; RESP 18; O2SAT 92
[2024-01-25] MEDS: BETAMETHASONE SODIUM PHOSPHATE PF INJ 6 MG/ML VIAL INFILTRATE (09:41)
[2024-01-25 09:43] VITALS: BP 132/67; PULSE 92; RESP 15; O2SAT 92
[2024-01-25] MEDS: LIDOCAINE HCL 2% PF INJ 5 ML VIAL 2 ML INFILTRATE (09:44)
[2024-01-25 09:46] VITALS: BP 117/76; PULSE 86; RESP 14; O2SAT 95
[2024-01-25] MEDS: LIDOCAINE HCL 1% PF INJ 5 ML VIAL 2 ML XX (09:46)
== END 2024-01-25 10:02 | disposition home or self-care (01) ==
PROVIDERS: PCP Family Medicine; Visit Provider Anesthesiology Pain Medicine
PROC: (CPT G0260; principal; 2024-01-25 10:15)
DX: M46.1 Sacroiliitis, not elsewhere classified (principal); M54.59 Other low back pain
CPT/HCPCS: G0260 ×2; 27096; 99199

== ENCOUNTER 2024-05-07 10:32 | Emergency (ER) | payer MEDICARE, SELFPAY ==
--- NOTE | ~2024-05-07 | XR_ITS ---
CHEST RADIOGRAPH, PA AND LATERAL CLINICAL HISTORY: cough, sob x10 days . COMPARISON: 04/21/2023 TECHNIQUE: PA and lateral views of the chest. FINDINGS Large hiatal hernia, unchanged from prior. The remainder of the cardiomediastinal silhouette is otherwise unremarkable. Platelike atelectasis within the left mid to lower lung field, unchanged from prior. The remainder of the lungs are clear. Visualized osseous structures and soft tissues are unremarkable. IMPRESSION: No focal infiltrate or effusion. Reviewed, dictated and finalized at location A. PAPER REPORTER
[2024-05-07 10:43] VITALS: BP 131/74; PULSE 100; RESP 16; TEMP 36.6; O2SAT 96
--- NOTE | 2024-05-07 10:55 | ED_ITS ---
HPI - URI/Sore Throat General Chief Complaint: Upper Respiratory Infection Stated Complaint: Sinus Infection Symptoms/SOB Time Seen by Provider: 05/07/24 10:43 Source: patient, family (Daughter) and RN notes reviewed Mode of arrival: ambulatory Limitations: no limitations History of Present Illness HPI Narrative: Daughter presents with patient today with complaints of a cough and nasal congestion times 10 days with shortness of breath. Denies fever. Patient was seen by her PCP 10 days ago and diagnosed with periorbital impetigo and prescribe some Keflex and prednisone. Patient states she did finish the Keflex but did not finish the prednisone. States that when she has a sinus infection her nose drains then she develops this infection below her nose, and she was placed on this antibiotic because of a sinus infection. The note does not reflect this, it reflects that she has impetigo. Patient is requesting a stronger antibiotic to get rid of her sinusitis. Daughter states patient had a coughing episode this morning severe enough that it caused her to turn blue for approximately 1 minute. Patient has tried to take Omaira-Ault Plus for her symptoms without relief. Related Data Home Medications ?Medication ?Instructions ?Recorded ?Confirmed ?Last Taken ?Type memantine 10 mg tablet 10 mg PO BID 01/17/24 04/27/24 Unknown History Allergies Allergy/AdvReac Type Severity Reaction Status Date / Time codeine Allergy Unknown Unknown Verified 05/07/24 10:49 donepezil Allergy Unknown confusion Verified 05/07/24 10:49 Review of Systems Review of Systems: CONSTITUTIONAL: Denies body aches, fever, chills, or sweats. EYES: Denies visual changes, redness, or discharge. ENT: Denies rhinorrhea, sore throat, or otalgia.+ nasal congestion CARDIOVASCULAR: Denies chest pain, palpitations, or edema. RESPIRATORY: + cough, shortness of breath GASTROINTESTINAL: Denies abdominal pain, nausea, vomiting, or diarrhea. GENITOURINARY: Denies dysuria or hematuria. SKIN: Denies itching, or wounds.+ rash MUSCULOSKELETAL: Denies back pain, joint pain, or myalgia. NEUROLOGIC: Denies headache, numbness, tingling, or weakness. PSYCH: Denies depression or anxiety. PMFSH Past Medical History Medical History Vitamin D deficiency Urinary tract infection, site not specified Ulcer of perianal area, limited to breakdown of skin Tinnitus of left ear Sprain of deltoid ligament of left ankle, initial encounter Shoulder arthritis Right shoulder tendonitis Rectocele, female Psychophysiological insomnia Primary osteoarthritis of left knee Pneumonia of upper lobe due to infectious organism PND (post-nasal drip) Osteopenia Insomnia, unspecified Essential (primary) hypertension Dyslipidemia Dementia in other diseases classified elsewhere, mild, without behavioral disturbance, psychotic disturbance, mood disturbance, and anxiety Contusion of left thigh, initial encounter Contusion of fingertip Cataract of right eye Atherosclerosis of coronary artery without angina pectoris Asthma due to seasonal allergies Arthritis of knee Acute suppurative otitis media of both ears without spontaneous rupture of tympanic membranes Acute pain Acute non-recurrent maxillary sinusitis Acute non-recurrent frontal sinusitis Acute cystitis without hematuria Acute bacterial conjunctivitis of both eyes Osteoporosis Mild intermittent asthma Atherosclerotic heart disease of crow coronary artery without angina pectoris Presbycusis Dementia Varicosities of leg Mixed hyperlipidemia Benign essential HTN Surgical History Surgical History S/P LYNETTE (total abdominal hysterectomy) Hx of tonsillectomy Family History Family History Mother Hypertension Family history of elevated blood lipids Family history of diabetes mellitus in first degree relative, Onset Age: 67 Patient's mother is Father Cerebrovascular accident, Onset Age: 70 Patient's father is Other Diabetes mellitus Family history of arthritis Family history of mental disorder Heart disease Social History Social History Social History: Smoking status: Never smoker Second hand tobacco smoke exposure: Yes Alcohol intake: never Substance use: never Substance use type: does not use Do You Feel Safe in your Home?: Yes Lack of Transportation: No Lack of Food: Never True Current Housing: I Have Housing Concerned About Future Housing: No Difficulty Paying Gas/Electric Bills: No Difficulty Paying for Meds: No Currently Unemployed: YES Education: Decline to Answer Difficulty w/ Childcare or Family Care: No Living arrangements: alone Additional living arrangements comments: pt's daughter lives with her Occupation/Education: retired Gender identity (if verbalized by the patient): Female Sexual Orientation (if Verbalized by the Patient): Straight or Heterosexual Spiritual care concerns: No Comments At time of signature, I have reviewed and agree with nursing past medical, surgical, social and family history unless otherwise noted. Please see nursing chart for further information. There is no relevant family history pertinent to the presenting complaint Exam Narrative: GENERAL: Mildly ill-appearing, well-nourished, and in no acute distress. HEAD: Normocephalic, atraumatic. EYES: EOMI. No redness or drainage. Conjunctivae normal. ENT: Mucous membranes pink and moist. Nares congested with rhinorrhea. TMs normal bilaterally. Throat normal. Uvula midline. NECK: Normal AROM. Supple. No lymphadenopathy. CHEST: No respiratory distress. Clear to auscultation. HEART: Regular rate and rhythm. No murmur appreciated. EXTREMITIES: Normal range of motion. No edema. SKIN: Warm, dry. Capillary refill normal. Normal skin turgor. Large area of erythema to the philtrum without any crusting. NEURO: No focal deficits. Alert and oriented x3. Gait steady. PSYCH: Normal affect. No signs of depression or anxiety. Course Course Level of Care: Express Care Visit Vital Signs Vital signs: Vital Signs Temperature 97.8 F 05/07/24 10:43 Pulse Rate 100 05/07/24 10:43 Respiratory Rate 16 05/07/24 10:43 Blood Pressure 131/74 05/07/24 10:43 Pulse Oximetry 96 05/07/24 10:43 Temperature 97.8 F 05/07/24 10:43 Pulse Rate 100 05/07/24 10:43 Respiratory Rate 16 05/07/24 10:43 Blood Pressure 131/74 05/07/24 10:43 Pulse Oximetry 96 05/07/24 10:43 Reviewed MDM - URI/Sore Throat MDM Narrative Medical decision making narrative: X-ray shows no infiltrates or effusion. It does show a large hiatal hernia, which was discussed with patient. Patient will be started on short course of Augmentin for sinusitis and has been instructed to finish her prednisone. She will also be given a prescription for mupirocin to help with the rest of for impetigo. Patient agrees with plan. Anticipatory guidance given. Differential Diagnosis Differential diagnosis: Likely upper respiratory infection, sinusitis, viral infection, bronchitis and other (Influenza) Imaging Data Radiologist's impression: ITS Impressions Chest X-Ray 05/07/24 11:59 IMPRESSION: No focal infiltrate or effusion. Critical Care Time Critical Care Time Critical Care Time: No Discharge Plan Discharge Clinical Impression: Impetigo Sinusitis Qualifiers: Sinusitis location: unspecified location Chronicity: acute Recurrence: non- recurrent Qualified Code(s): J01.90 - Acute sinusitis, unspecified Patient Disposition: Home, Self-Care Condition: Stable Instructions: Antibiotic Form, Hiatal Hernia (DC), Impetigo (DC), Sinusitis (ED) Additional Instructions: Your chest x-ray is negative for pneumonia. It does show a large hiatal hernia as discussed. This may cause some reflux or heartburn symptoms. Information has been provided for you in your packet. Please take the Augmentin as prescribed. Please finish out the rest of the prednisone that has prescribed for you. Take xhhk-wvo-voptgco medication as needed. Follow-up with your PCP in 3-5 days if symptoms are not improving. Go to the ER immediately if you develop worsening symptoms such as worsening shortness of breath, development of new fever greater than 100.3, or chest pain. Your blood pressure was elevated above 120/80 today at Urgent Care. This puts you above the threshold for follow up. Please schedule a followup visit with your personal physician as soon as possible, for further evaluation and eric tment. Even blood pressure exceeding 120/80 may indicate pre-hypertension. Patient Language: Malagasy Prescriptions: New mupirocin 2 % ointment 1 applic topical BID 7 Days Qty: 22 0RF amoxicillin-pot clavulanate 875-125 mg tablet 1 tablet PO Q12H 7 Days Qty: 14 0RF No Action cyclobenzaprine 5 mg tablet 5 mg PO TID PRN (Reason: muscle spasm) Qty: 60 0RF hydroxyzine HCl 25 mg tablet 25 mg PO TID PRN (Reason: itching) Qty: 60 0RF buspirone 5 mg tablet 5 mg PO BID Qty: 180 1RF Rx Instructions: TAKE 1 TABLET BY MOUTH TWICE A DAY celecoxib 100 mg capsule See Rx Instructions .ROUTE .COMPLEX Qty: 60 0RF Dose Instruction: TAKE 1 CAPSULE BY MOUTH TWICE A DAY NEEDED FOR PAIN Rx Instructions: TAKE 1 CAPSULE BY MOUTH TWICE A DAY NEEDED FOR PAIN zolpidem 10 mg tablet 10 mg PO QHS Qty: 90 0RF atorvastatin 10 mg tablet 10 mg PO DAILY Qty: 90 1RF Rx Instructions: TAKE 1 TABLET BY MOUTH EVERY DAY IN THE EVENING irbesartan-hydrochlorothiazide 150-12.5 mg tablet 1 tablet PO DAILY Qty: 90 1RF Rx Instructions: TAKE 1 TABLET BY MOUTH EVERY DAY sertraline 25 mg tablet 25 mg PO DAILY Qty: 90 1RF Rx Instructions: TAKE 1 TABLET BY MOUTH DAILY memantine 10 mg tablet 10 mg PO BID Rx Instructions: TAKE 1 TABLET BY MOUTH TWICE A DAY Follow-up/Referrals: PHYSICIAN,RECREATIONAL PROGRAMS DIRECTOR [Primary Care Provider] - Time of Disposition: 12:14
== END 2024-05-07 12:19 | disposition home or self-care (01) ==
PROVIDERS: Emergency Provider Nurse Practitioner
DX: L01.00 Impetigo, unspecified (principal); J01.90 Acute sinusitis, unspecified; I10 Essential (primary) hypertension; I25.10 Atherosclerotic heart disease of native coronary artery without angina pectoris; M81.0 Age-related osteoporosis without current pathological fracture; F03.90 Unspecified dementia, unspecified severity, without behavioral disturbance, psychotic disturbance, mood disturbance, and anxiety; E78.2 Mixed hyperlipidemia; M17.12 Unilateral primary osteoarthritis, left knee; M85.80 Other specified disorders of bone density and structure, unspecified site; J45.909 Unspecified asthma, uncomplicated
CPT/HCPCS: 71046; 99213; G0463

== ENCOUNTER 2024-06-29 12:33 | Outpatient (CLI) | payer MEDICARE, SELFPAY ==
[2024-06-29 13:45] LABS: Hematocrit 41.1 % (37.0-47.0); Mean Corpuscular HGB Conc 31.6 g/dl (32-36); Mean Corpuscular Hemoglobin 29.1 pg (26-34); Mean Corpuscular Volume 91.9 fl (80-100); Mean Platelet Volume 9.7 fl (7.4-10.4); Platelet Count Result 229 k/mm3 (150-375); Red Blood Count 4.47 M/mm3 (4.2-5.4); Red Cell Distribution Width 13.1 % (11.5-14.5); White Blood Count 5.6 K/mm3 (4.5-10.0)
--- OUTSIDE RECORDS SUMMARY | 2024-06-29 14:00 | XMS_ITS | Continuity of Care Document ---
Author Organization [facility] Address [address] [place] [address] [place] [address] Phone Care Team Providers Care Chairman Ceo Name Role Phone Nelsy Hyatt Unavailable Unavailable Procedures Procedure Date Post-op Follow-up Visit Post-op Follow-up Visit Post-op Follow-up Visit Remove Cataract, Insert Lens Office/outpatient Visit, Est IOLMaster Cataract Kit SEC MV Tax - Medical Office/outpatient Visit, Est Eye Exam & Treatment Fundus Photography W/ Report Advance Directives Directive Yes / No Effective Date File Name No Information Encounters Encounter Description Practice Location Reason(s) For Visit Diagnoses Date Provider Providers Copied on Encounter [facility], [address] [place] [address] [address], [place], [place], [id number], [place] tel:[phone] [facility] No Information 2-201 0 Olena Pierce [address], [place], [address], [place]. tel:[phone] [facility], [address] [place] [address] [address], [place], [place], [id number], [place] tel:[phone] [facility] No Information 9-200 9 Olena Pierce [address] , [address], [place], [address], [place]. tel:[phone] [facility], [address] [place], [place] [address] [address], [place], [place], [id number], [place] tel:[phone] [facility] No Information Dec-1 7-200 9 Michel OD Aime. [address] , [address], [place], [place], [facility], [place]. tel:[phone] [facility], [address], [place], [place], [id number], [place] tel:[phone] [facility] No Information Dec-1 6200 9 Olena [place]itting[place]. [address], [place], [place], [facility], [place]. tel:[phone] Office/outpat ient Visit, [facility], [address], [place], [place], [id number], [place] tel:[phone] [facility] No Information Dec-0 8-200 9 Olena [place]. [address], [place], [place], [facility], [place]. tel:[phone] Referring Provider: Nelsy Headley, [address], [place], [place], [facility]. tel:[phone] Office/outpat ient Visit, [facility], [address] [place] [address] [address], [place], [place], [id number], [place] tel:[phone] [facility] No Information Jul-2 1-200 9 Olena Pierce [address], [place], [facility], [place]. tel:[phone] [facility], [address] [place] [address] [address], [place], [place], [id number], [place] tel:[phone] [facility] No Information Mar-1 8-200 8 Olena Pierce [address], [place], [facility], [place]. tel:[phone] Referring Provider: Nelsy Hyatt Y, [address], [place], [address]. tel:[phone] Family History Family Member Type Diagnosis Age At Onset No Information Payers Payer name Insurance type Covered republican ID Authoriza tion(s) No Information Social History Type Description Quantity Date Captured Comments Sex Female Smoking Status No Information Chief Complaint And Reason For Visit No Information Reason For Referral Reason For Referral No Information History Of Present Illness Encounter Date Complaint History Of Prese nt Illness No Information Functional Status Date Functional Assessmen t No Information Instructions Date Instruction Additional Infor mation No Information Assessments Type Assessment Date No Information Patient Care Teams Name Effective Dates (start - stop) Status Members No Information
[2024-06-29 14:09] LABS: Albumin Level 4.3 g/dL (3.5-5.1); Aspartate Amino Transferase 27 U/L (14-36); Calcium 9.7 mg/dL (8.4-10.2); Estimated Glomerular Filt Rate 49; Glucose 102 mg/dL (65-110); Triglycerides 101 mg/dL (<150)
[2024-06-29 15:51] LABS: Alanine Aminotransferase 18 U/L (6-35); Alkaline Phosphatase 71 U/L (38-126); Anion Gap 12 mmol/L (4-12); Bilirubin,Total 0.9 mg/dL (0.2-1.3); Blood Urea Nitrogen 33 mg/dL (7-17); Carbon Dioxide 23 mmol/L (22-30); Chloride 105 mmol/L (98-107); Cholesterol 146 mg/dL (0-200); HDL Direct 64 mg/dL; Potassium 4.2 mmol/L (3.4-5.0); Sodium 140 mmol/L (137-145)
[2024-06-29 15:54] LABS: LDL Cholesterol Direct 47 mg/dL
== END 2024-06-29 12:34 | disposition home or self-care (01) ==
LOC: ANHLAB 12:34
PROVIDERS: PCP Family Medicine; Visit Provider Family Medicine
DX: R53.83 Other fatigue (principal); I10 Essential (primary) hypertension; I25.10 Atherosclerotic heart disease of native coronary artery without angina pectoris; E78.2 Mixed hyperlipidemia
CPT/HCPCS: 36415; 80053; 80061; 84443; 85027

== ENCOUNTER 2024-08-09 10:21 | Outpatient (CLI) | payer MEDICARE, SELFPAY ==
--- NOTE | ~2024-08-09 | DEXA_ITS ---
Bone Density Report Name: SAHRA PAEZ Age: 88 Sex: Female Ethnicity: White Date of : 1935 Indication: osteopenia; height loss; hysterectomy; Referring Provider: JENNIFER COATES Study: Bone densitometry was performed. Exam Date: August 09, 2024 Accession number: [id number] Bone Density: Region BMD T-score Z-score Classification AP Spine(L1-L4) 0.927 -1.1 1.8 Osteopenia Femoral Neck (Left) 0.528 -2.9 -0.4 Osteoporosis Total Hip (Left) 0.709 -1.9 0.4 Osteopenia Femoral Neck (Right) 0.498 -3.2 -0.6 Osteoporosis Total Hip (Right) 0.698 -2.0 0.3 Osteopenia Total Hip Mean 0.704 -2.0 0.4 Osteopenia World Health Organization criteria for BMD impression classify patients as: Normal (T-score at or above -1.0), Osteopenia (T-score between -1.0 and -2.5), or Osteoporosis (T-score at or below -2.5). 10-year Fracture Risk: FRAX not reported because: Some T-score for Spine Total or Hip Total or Femoral Neck at or below -2.5 Previous Exams: Region Exam Age BMD T-score BMD Change BMD Change Date g/cm2 vs Baseline vs Previous AP Spine (L1-L4) 08/09/2024 88 0.927 -1.1 0.114 (14.0%)# 0.114 (14.0%)# 01/31/2013 77 0.813 -2.1 Total Hip(Left) 08/09/2024 88 0.709 -1.9 0.001 (0.2%)# 0.024 (3.5%) 12/18/2019 84 0.685 -2.1 -0.023 (-3.2%) -0.064 (-8.5%) 05/25/2016 80 0.749 -1.6 0.041 (5.8%)# 0.041 (5.8%)# 01/31/2013 77 0.708 -1.9 Total Hip(Right) 08/09/2024 88 0.698 -2.0 -0.078 (-10.1% -0.019 (-2.6%) 12/18/2019 84 0.717 -1.8 -0.060 (-7.7%) 0.006 (0.8%) 05/25/2016 80 0.711 -1.9 -0.065 (-8.4%) -0.065 (-8.4%) 01/31/2013 77 0.777 -1.4 *Denotes significance at 95% confidence level, LSC for AP Spine = 0.022 g/cm2, LSC for Total Hip = 0.027 g/cm2 # Denotes dissimilar scan types or analysis methods Clinical Information Provided by Patient: Has the following medical conditions: Hysterectomy Patient maximum height was 65 Menopause Age: 51 No regular weight bearing exercise Onset of menses at age 14 Number of children 5 Impression: The patient has osteoporosis, based on the Right Femoral Neck T-score. No significant bone loss was observed. Discussion: INCREASED RISK OF FRACTURE. BONE DENSITY IS UNDESIRABLY LOW AT ONE OR MORE SKELETAL SITES, CONSISTENT WITH POSTMENOPAUSAL OSTEOPOROSIS. This patient's lowest T-score meets the World Health Organization's (WHO) criteria for osteoporosis at one or more sites (T-score -2.5 or below). In untreated patients, the risk of osteoporotic fracture increases approximately two-fold for each 1.0 SD decrease in T-score. Low bone density is not the only risk factor for fracture; also consider factors such as patient's age, frailty or poor health, risk of falling, risk of injury, previous osteoporotic fracture, family history of osteoporosis, cigarette smoking, low body weight, etc. Not everyone with low bone mineral density has osteoporosis; osteomalacia and other metabolic bone disorders should also be considered. Patients who have osteoporosis should be evaluated for specific diseases and conditions (secondary causes) that may cause or contribute to bone loss. The [place] [employer] Endocrinologists (AACE) and National Osteoporosis Foundation (NOF) recommend pharmacologic intervention for all postmenopausal women whose T-score is in this range. The patient should follow a healthful lifestyle (good nutrition with adequate calcium and vitamin D, and appropriate weight-bearing exercise). Follow-Up: Consider a repeat BMD and Vertebral Fracture Assessment (VFA) exam in 2 years or sooner if medically necessary, to reassess this patient's status. Reported by: ITZ on 08/09/2024 10:56:00 AM. Reviewed, dictated and finalized at location AJovana VAUGHN
--- OUTSIDE RECORDS SUMMARY | 2024-08-09 11:51 | XMS_ITS | Continuity of Care Document ---
Author Organization [facility] Address [address] [place] [address] [place] [address] Phone Care Team Providers Care Extension Service Specialist Name Role Phone Nelsy Hyatt Unavailable Unavailable [...] Diagnoses Date Provider Providers Copied on Encounter formerly [facility], [address] [place] [address] [address], [place], [place], [id number], [place] tel:[phone] [facility] No Information 2-201 0 Olena Pierce [address], [place], [address], [place]. tel:[phone] formerly [facility], [address] [place] [address] [address], [place], [place], [id number], [place] tel:[phone] [facility] No Information 9-200 9 Olena Pierce [address], [place], [address], [place]. tel:[phone] formerly [facility], [address] [place], [place] [address], [place], [place], [id number], [place] tel:[phone] [facility] No Information Dec-1 7-200 9 Michel OD Aime. [address], [place], [place], [facility], [place]. tel:[phone] formerly [facility], [address], [place], [place], [id number], [place] tel:[phone] [facility] No Information Dec-1 6200 9 Olena [place]. [address], [place], [place], [facility], [place]. tel:[phone] Office/outpat ient Visit, [facility], [address], [place], [place], [id number], [place] tel:[phone] [facility] No Information Dec-0 8-200 9 Olena [place]. [address], [place], [facility], [place]. tel:[phone] Referring Provider: Nelsy Headley, [address], [place], [place], [facility]. tel:[phone] Office/outpat ient Visit, [facility], [address] [place] [address] [address], [place], [place], [id number], [place] tel:[phone] [facility] No Information Jul-2 1-200 9 Olena Pierce [address], [place], [facility], [place]. tel:[phone] [facility] Eye [facility], [address] [place] [address] [address], [place], [place], [id number], [place] tel:[phone] [facility] No Information Mar-1 8-200 8 Olena Pierce [address], [place], [place], [facility], [place]. tel:[phone] Referring Provider: Nelsy Hyatt Y, [address], [place], [address]. tel:[phone] Family History Family Member Type Diagnosis Age [...]
== END 2024-08-09 10:22 | disposition home or self-care (01) ==
LOC: ANHIMG 10:22
PROVIDERS: PCP Family Medicine; Visit Provider Family Medicine
DX: Z78.0 Asymptomatic menopausal state (principal); M85.88 Other specified disorders of bone density and structure, other site; M81.0 Age-related osteoporosis without current pathological fracture; M85.852 Other specified disorders of bone density and structure, left thigh; M85.851 Other specified disorders of bone density and structure, right thigh
CPT/HCPCS: 77080

== ENCOUNTER 2024-08-28 16:13 | Outpatient (CLI) | payer MEDICARE, SELFPAY ==
--- OUTSIDE RECORDS SUMMARY | 2024-08-28 16:16 | XMS_ITS | Continuity of Care Document ---
Author Organization [facility] Address [address] [place] [address] [place] [address] Phone Care Team Providers Care Asparagus Buncher Name Role Phone Nelsy Hyatt Unavailable Unavailable [...] Diagnoses Date Provider Providers Copied on Encounter [facility], [address] [place] [address] [address], [place], [place], [id number], [place] tel:[phone] [facility] No Information 2-201 0 Olena Pierce [address], [place], [address], [place]. tel:[phone] [facility], [address] [place] [address] [address], [place], [place], [address], [place] tel:[phone] [facility] No Information 9-200 9 Olena Pierce [address], [place], [address], [place]. tel:[phone] [facility], [address] [place], [place] [address], [place], [place], [address], [place] tel:[phone] [facility] No Information Dec-1 7-200 9 Michel OD Aime. [address], [place], [facility], [place]. tel:[phone] [facility], [address], [place], [place], [address], [place] tel:[phone] [facility] No Information Dec-1 6200 9 Olena Whittington. [address], [place], [facility], [place]. tel:[phone] Office/outpat ient Visit, [facility], [address], [place], [place], [address], [place] tel:[phone] [facility] No Information Dec-0 8-200 9 Olena Whittington. [address], [place], [facility], [place]. tel:[phone] Referring Provider: Nelsy Headley, [address], [place], [facility]. tel:[phone] Office/outpat ient Visit, [facility], [address] [place] [address] [address], [place], [place], [address], [place] tel:[phone] [facility] No Information Jul-2 1-200 9 Olena Pierce [address], [place], [facility], [place]. tel:[phone] [facility], [address] [place] [address] [address], [place], [place], [address], [place] tel:[phone] [facility] No Information Mar-1 8-200 8 Olena Pirece [address], [place], [facility], [place]. tel:[phone] Referring Provider: Nelsy Hyatt Y, [address], [place], [address]. tel:[phone] Family History Family Member Type Diagnosis Age [...]
[2024-08-28 17:49] LABS: Add Urine Microscopic? YES; Appearance Urine Cloudy (Clear); Bacteria Urine 4+ /hpf; Bilirubin Urine Negative (Negative); Blood Urine Negative (Negative); Color Urine Yellow (Yellow); Glucose Urine UA Negative (Negative); Ketones Urine Trace mg/dL (Negative); Leukocyte Esterase Ur 3+ LEU/UL (Negative); Nitrate Urine Positive (Negative); Non Pathogenic Casts 0-2; Protein Urine Negative (Negative); RBC Urine 0-2 /hpf (0-2); Specific Grav Ur 1.021 (1.001-1.035); Squamous Epithelial Cell Urine None Seen /hpf (Few); Urobilinogen Urine 0.2 mg/dL (<2.0); WBC Urine >100 /hpf (0-3); pH Urine 6.5 (5.0-9.0)
== END 2024-08-28 16:14 | disposition home or self-care (01) ==
DX: R35.0 Frequency of micturition (principal)
CPT/HCPCS: 81001; 87077; 87086; 87186

== ENCOUNTER 2024-10-17 13:49 | Outpatient (CLI) | payer MEDICARE, SELFPAY ==
--- OUTSIDE RECORDS SUMMARY | 2024-10-17 13:52 | XMS_ITS | Continuity of Care Document ---
Author Organization [facility] Address [address] [place] [address] [place] [address] Phone Care Team Providers Care Supply Technician Name Role Phone Nelsy Hyatt Unavailable Unavailable [...] Diagnoses Date Provider Providers Copied on Encounter [facility], [address] [place] [address] [address], [place], [place], [id number], [place] tel:[phone] [facility] No Information 2-201 0 Olena Pierce [address], [place], [address], [place]. tel:[phone] [facility], [address] [place] [address] [address], [place], [place], [address], [place] tel:[phone] [facility] No Information 9-200 9 Olena Pierce [address], [place], [address], [place]. tel:[phone] [facility], [address] [place], [place] [address], [place], [place], [address], [place] tel:[phone] [facility] No Information Dec-1 7-200 9 Michel OD Aime. [address], [place], [facility], [place]. tel:[phone] [facility], [address], [place], [place], [address], [place] tel:[phone] [facility] No Information Dec-1 6200 9 Olena Whittington. [address], [place], [facility], [place]. tel:[phone] Office/outpat ient Visit, [facility] [address], [place], [place], [address], [place] tel:[phone] [facility] No Information Dec-0 8-200 9 Olena Whittington. [address], [place], [facility], [place]. tel:[phone] Referring Provider: Nelsy Headley, [address], [place], [facility]. tel:[phone] Office/outpat ient Visit, [facility], [address] [place] [address] [address], [place], [place], [address], [place] tel:[phone] [facility] No Information Jul-2 1-200 9 Olena Pierce [address], [place], [facility], [place]. tel:[phone] [facility], [address] [place] [address] [address], [place], [place], [address], [place] tel:[phone] [facility] No Information Mar-1 8-200 8 Olena Pierce [address], [place], [facility], [place]. tel:[phone] Referring Provider: Nelsy Hyatt Y, [address], [place], [address]. tel:[phone] Family History Family Member Type Diagnosis Age At Onset No Information Payers Payer name Insurance type Covered green party ID Authoriza tion(s) No Information Social History [...]
[2024-10-17 15:01] LABS: Add Urine Microscopic? YES; Appearance Urine Clear (Clear); Glucose Urine UA Negative (Negative); Leukocyte Esterase Ur 1+ LEU/UL (Negative); Need Manual Microscopic Reviewed; Nitrate Urine Negative (Negative); Non Pathogenic Casts 0-2; Specific Grav Ur 1.007 (1.001-1.035)
== END 2024-10-17 13:50 | disposition home or self-care (01) ==
PROVIDERS: PCP Family Medicine; Visit Provider Physician Assistant Medical
DX: R30.0 Dysuria (principal); R35.0 Frequency of micturition
CPT/HCPCS: 81001; 87086

== ENCOUNTER 2024-11-03 15:12 | Outpatient (CLI) | payer MEDICARE, SELFPAY ==
--- OUTSIDE RECORDS SUMMARY | 2024-11-03 15:15 | XMS_ITS | Continuity of Care Document ---
Author Organization [facility] Address [address] [place] [address] [place] [address] Phone Care Team Providers Care Cashiers Supervisor Name Role Phone Nelsy Hyatt Unavailable Unavailable [...] Date Provider Providers Copied on Encounter [facility], [address] [place] [address] [address], [place], [place], [address], [place] tel:[phone] [facility] No Information 2-201 0 Olena Pierce [address], [place], [address], [place]. tel:[phone] [facility], [address] [place] [address] [address], [place], [place], [address], [place] tel:[phone] [facility] No Information 9-200 9 Olena Pierce [address], [place], [address], [place]. tel:[phone] [facility], [address] [place], [place] [address] [address], [place], [place], [address], [place] tel:[phone] [facility] No Information Dec-1 7-200 9 Michel OD Aime. [address], [place], [place], [facility], [place]. tel:[phone] [facility], [address], [place], [place], [address], [place] tel:[phone] [facility] No Information Dec-1 6200 9 Olena Whittington. [address], [place], [facility], [place]. tel:[phone] Office/outpat ient Visit, [facility], [address], [place], [place], [address], [place] tel:[phone] [facility] No Information Dec-0 8-200 9 Olena Whittington. [address], [place], [facility], [place]. tel:[phone] Referring Provider: Nelsy Headley, [address], [place], [facility]. tel:[phone] Office/outpat ient Visit, [facility], [address] [place] [address] [address], [place], [place], [address], [place] tel:[phone] [facility] No Information Jul-2 1-200 9 Olena Pierce [address], [place], [facility], [place]. tel:[phone] [facility], [address] [place] [address] [address], [place], [place], [address], [place] tel:[phone] [facility] No Information Mar-1 8-200 8 Olena Pierce [address], [place], [facility], [place]. tel:[phone] Referring Provider: Nelsy Hyatt Y, [address], [place], [address]. tel:[phone] Family History Family Member Type Diagnosis Age At Onset No Information Payers Payer name Insurance type Covered alliance party ID Authoriza tion(s) No Information Social [...]
[2024-11-03 15:49] LABS: Add Urine Microscopic? YES; Appearance Urine Clear (Clear); Glucose Urine UA Negative (Negative); Leukocyte Esterase Ur 2+ LEU/UL (Negative); Nitrate Urine Negative (Negative); Non Pathogenic Casts 0-2; Specific Grav Ur 1.017 (1.001-1.035)
== END 2024-11-03 15:13 | disposition home or self-care (01) ==
PROVIDERS: PCP Family Medicine
DX: R35.0 Frequency of micturition (principal)
CPT/HCPCS: 81001; 87086

== ENCOUNTER 2025-04-04 12:41 | Outpatient (CLI) | payer MEDICARE, SELFPAY | END 2025-04-04 12:42 | disposition home or self-care (01) | PROVIDERS: PCP Family Medicine; Visit Provider Physician Assistant | DX: R30.0 Dysuria (principal) | CPT/HCPCS: 87077; 87086; 87186 ==